=== PATIENT | female | born 1960 | race Caucasian/White ===

== ENCOUNTER 2017-04-29 11:27 | Emergency (ER) | payer SELFPAY ==
[2017-04-29] MEDS ORDERED: DIPH/PERTUSS(ACELL)/TETANUS VAC/PF 0.5 ML SYR (>=10YO) IM ONE ×2 (11:47→15:15)
[2017-04-29] MEDS ORDERED: OXYCODONE-ACETAMINOPHEN 5-325 MG TABLET PO ONE (11:47)
--- NOTE | 2017-04-29 11:49 | ER Document Report ---
ED Medical Screen (RME) - General Chief Complaint: Laceration Stated Complaint: LACERATION TO LEFT LEG Time Seen by Provider: 04/29/17 11:47 Mode of Arrival: Wheelchair Information source: Patient TRAVEL OUTSIDE OF THE [place] IN LAST 30 DAYS: No - HPI Patient complains to provider of: Left lower leg injury Onset: Just prior to arrival Notes: 04/29/17 11:48 Patient is a 56-year-old female who presents to the emergency room complaining of injury to her left lower leg, states she slipped and fell at home laceration to the leg and painful ambulation, denies pain or injury elsewhere - Related Data Allergies/Adverse Reactions: ampicillin [Ampicillin] Allergy (Verified 04/29/17 11:32) Past Medical History Pulmonary Medical History: Reports: Hx Asthma, Hx COPD, Hx Pneumonia Renal/ Medical History: Denies: Hx Peritoneal Dialysis Psychiatric Medical History: Reports: Hx Depression Past Surgical History: Reports: Hx Hysterectomy - Immunizations Hx Diphtheria, Pertussis, Tetanus Vaccination: No Physical Exam - Vital signs Vitals: Temp Pulse Resp BP Pulse Ox 97.4 F 81 20 108/79 97 04/29/17 11:37 04/29/17 11:37 04/29/17 11:37 04/29/17 11:37 04/29/17 11:37 Course - Vital Signs Vital signs: Temp Pulse Resp BP Pulse Ox 97.4 F 81 20 108/79 97 04/29/17 11:37 04/29/17 11:37 04/29/17 11:37 04/29/17 11:37 04/29/17 11:37
--- NOTE | 2017-04-29 12:39 | RADIOLOGY REPORT (SQ) ---
EXAM DESCRIPTION: TIBIA FIBULA LEFT COMPLETED DATE/TIME: 04/29/2017 12:21 pm REASON FOR STUDY: injury COMPARISON: None. NUMBER OF VIEWS: Two views. TECHNIQUE: Two radiographic images acquired of the left tibia and fibula to include the knee and ank le in at least one projection. LIMITATIONS: None. FINDINGS: MINERALIZATION: Normal. BONES: No acute fracture or dislocation. No worrisome bone lesions. SOFT TISSUES: There is appears to be a soft tissue injury in the pretibial region. OTHER: No other significant finding. IMPRESSION: Soft tissue injury with no acute osseous abnormality. TECHNICAL DOCUMENTATION: JOB ID: [id number] [employer]- All Rights Reserved
[2017-04-29] MEDS ORDERED: LIDOCAINE 1% INJ-PF (10 MG/ML) 30 ML SDV INJ ONE (15:19)
[2017-04-29] MEDS ORDERED: HYDROMORPHONE HCL INJ/PF 2 MG/ML AMPULE IM ONE (15:20)
--- NOTE | 2017-04-29 15:21 | ER Document Report ---
ED Wound - General Chief Complaint: Laceration Stated Complaint: LACERATION TO LEFT LEG Time Seen by Provider: 04/29/17 11:47 Mode of Arrival: Wheelchair Information source: Patient Notes: Patient is a 56-year-old female who presents to the ER today for laceration to her left lower leg after she fell and cut it on concrete. She is not up-to- date on her tetanus. She states bleeding is controlled. She denies any numbness or tingling. TRAVEL OUTSIDE OF THE [place] IN LAST 30 DAYS: No - Related Data Allergies/Adverse Reactions: ampicillin [Ampicillin] Allergy (Verified 04/29/17 11:32) Past Medical History - General Information source: Patient - Social History Smoking Status: Current Every Day Smoker Chew tobacco use (# tins/day): No Drug Abuse: None Family History: Reviewed & Not Pertinent Patient has suicidal ideation: No Patient has homicidal ideation: No Pulmonary Medical History: Reports: Hx Asthma, Hx COPD, Hx Pneumonia Renal/ Medical History: Denies: Hx Peritoneal Dialysis Psychiatric Medical History: Reports: Hx Depression Past Surgical History: Reports: Hx Hysterectomy - Immunizations Hx Diphtheria, Pertussis, Tetanus Vaccination: No Hx Pneumococcal Vaccination: 08/01/15 Review of Systems - Review of Systems Constitutional: No symptoms reported EENT: No symptoms reported Cardiovascular: No symptoms reported Respiratory: No symptoms reported Gastrointestinal: No symptoms reported Genitourinary: No symptoms reported Female Genitourinary: No symptoms reported Musculoskeletal: No symptoms reported, See HPI Skin: See HPI Hematologic/Lymphatic: No symptoms reported Neurological/Psychological: No symptoms reported Physical Exam - Vital signs Vitals: Temp Pulse Resp BP Pulse Ox 97.4 F 81 20 108/79 97 04/29/17 11:37 04/29/17 11:37 04/29/17 11:37 04/29/17 11:37 04/29/17 11:37 - Notes Notes: PHYSICAL EXAMINATION: GENERAL: Well-appearing and in no acute distress. HEAD: Atraumatic, normocephalic. EYES: Pupils equal round and reactive to light, extraocular movements intact, sclera anicteric, conjunctiva are normal. NECK: Normal range of motion, supple without lymphadenopathy LUNGS: CTAB and equal. No wheezes rales or rhonchi. HEART: Regular rate and rhythm without murmurs EXTREMITIES: Normal range of motion, no pitting edema. No cyanosis. NEUROLOGICAL: Cranial nerves grossly intact. Normal sensory/motor exams. PSYCH: Normal mood, normal affect. SKIN: Warm, Dry, normal turgor, large 8 cm laceration to the left anterior leg, gaping no bleeding, through subcutaneous fat but not into muscle Course - Re-evaluation Re-evalutation: 04/29/17 16:47 Procedure successfully using horizontal mattress sutures as well as simple interrupted sutures, patient tolerated procedure well - Vital Signs Vital signs: Temp Pulse Resp BP Pulse Ox 97.4 F 81 20 108/79 97 04/29/17 11:37 04/29/17 11:37 04/29/17 11:37 04/29/17 11:37 04/29/17 11:37 Procedures - Laceration/Wound Repair Left Anterior Leg Time completed: 16:40 Wound length (cm): 8 Wound's Depth, Shape: Superficial, Linear, Contused tissue Laceration pre-procedure: Sterile PPE donned, Betadine prep applied, Sterile drapes applied Anesthetic type: 1% Lidocaine Volume Anesthetic (mLs): 7 Wound explored: Clean Wound Repaired With: Sutures Suture Size/Type: 4:0, Nylon Number of Sutures: 15 Post-procedure NV exam normal: Yes Complications: No Notes: 04/29/17 16:49 horizontal mattress and simple interrupted Discharge - Discharge Clinical Impression: Leg laceration Qualifiers: Encounter type: initial encounter Laterality: left Qualified Code(s): S81.812A - Laceration without foreign body, left lower leg, initial encounter Condition: Stable Disposition: HOME, SELF-CARE Instructions: Laceration Care ([facility]), Prophylactic Antibiotic ([facility]), Tetanus Immunization Given ([facility]), Soap Cleansing ([facility]) Additional Instructions: Please be seen in 10 days to have sutures removed. Return immediately for any new or worsening symptoms. Follow up with primary care provider, call tomorrow to make followup appointment. Prescriptions: Cephalexin Monohydrate [Keflex 500 mg Capsule] 500 mg PO Q6H 5 Days
[2017-04-29] MEDS ORDERED: HYDROCODONE/ACETAMINOPHEN 5-325 MG 6 TAB/DSPK PO PRN (16:51)
[2017-04-29 17:15] VITALS: BP 114/62
== END 2017-04-29 17:11 | disposition home or self-care (01) ==
LOC: ER 11:27
PROC: 0HQLXZZ Repair Left Lower Leg Skin, External Approach (ICD-10-PCS; principal; 2017-04-29)
DX: S81.812A Laceration without foreign body, left lower leg, initial encounter (principal); W10.9XXA Fall (on) (from) unspecified stairs and steps, initial encounter; F17.200 Nicotine dependence, unspecified, uncomplicated; J44.9 Chronic obstructive pulmonary disease, unspecified; Z88.0 Allergy status to penicillin
CPT/HCPCS: 99283; 96372; 90471; 73590; 90715; 12004; J3490; J1170

== ENCOUNTER 2017-05-04 19:00 | Emergency (ER) | payer SELFPAY ==
[2017-05-04] MEDS ORDERED: SULFAMETHOXAZOLE/TRIMETHOPRIM 800-160 MG TABLET PO ONE (20:06)
[2017-05-04] MEDS ORDERED: HYDROCODONE/ACETAMINOPHEN 5-325 MG TABLET PO ONE (20:08)
--- NOTE | 2017-05-04 20:09 | ER Document Report ---
ED General - General Chief Complaint: Wound Infection Stated Complaint: LEFT LEG SWELLING AND PAIN Time Seen by Provider: 05/04/17 19:52 Mode of Arrival: Ambulatory Information source: Patient Notes: 36-year-old female presents to ED for cellulitis infection and swelling to the laceration that she was seen for on 04/29/2017. She has 15 sutures still intact. There is mild redness and swelling to the area. She was started on Keflex at the time of the sutures were placed. She states that the pain has increased since it started swelling. TRAVEL OUTSIDE OF THE [place] IN LAST 30 DAYS: No - HPI Onset: Other Onset/Duration: Gradual, Worse Quality of pain: Pressure, Sharp Severity: Moderate Pain Level: 4 Associated symptoms: Other - Redness swelling and pressure to the right lower leg patient states has had drainage from the area. Exacerbated by: Movement, Walking Relieved by: Denies Similar symptoms previously: Yes Recently seen / treated by doctor: Yes - Related Data Allergies/Adverse Reactions: ampicillin [Ampicillin] Allergy (Verified 05/04/17 19:46) Past Medical History - General Information source: Patient - Social History Smoking Status: Current Every Day Smoker Chew tobacco use (# tins/day): Yes Frequency of alcohol use: None Drug Abuse: None Lives with: Family Family History: Reviewed & Not Pertinent Patient has suicidal ideation: No Patient has homicidal ideation: No - Past Medical History Cardiac Medical History: Reports: None Pulmonary Medical History: Reports: Hx Asthma, Hx COPD, Hx Pneumonia EENT Medical History: Reports: None Neurological Medical History: Reports: None Endocrine Medical History: Reports: None Renal/ Medical History: Reports: None Malignancy Medical History: Reports: None GI Medical History: Reports: None Musculoskeltal Medical History: Reports Hx Musculoskeletal Trauma Skin Medical History: Reports Hx Cellulitis, Reports Hx MRSA Psychiatric Medical History: Reports: Hx Depression Traumatic Medical History: Reports: None Infectious Medical History: Reports: Hx MRSA Past Surgical History: Reports: Hx Hysterectomy - Immunizations Hx Diphtheria, Pertussis, Tetanus Vaccination: No Hx Pneumococcal Vaccination: 08/01/15 Review of Systems - Review of Systems Constitutional: No symptoms reported EENT: No symptoms reported Cardiovascular: No symptoms reported Respiratory: No symptoms reported Gastrointestinal: No symptoms reported Genitourinary: No symptoms reported Female Genitourinary: No symptoms reported Musculoskeletal: No symptoms reported Skin: Other - Redness swelling around the site of sutures to the left lower leg. Patient had fallen on concrete on 04/29/2017 and 15 sutures were placed to repair the wound. Hematologic/Lymphatic: No symptoms reported Neurological/Psychological: No symptoms reported -: Yes All other systems reviewed and negative Physical Exam - Vital signs Vitals: Temp Pulse Resp BP Pulse Ox 97.6 F 87 18 122/62 96 05/04/17 19:27 05/04/17 19:27 05/04/17 19:27 05/04/17 19:27 05/04/17 19:27 Interpretation: Normal - General General appearance: Appears well, Alert - HEENT Head: Normocephalic, Atraumatic Eyes: Normal Pupils: PERRL - Respiratory Respiratory status: No respiratory distress Chest status: Nontender Breath sounds: Normal Chest palpation: Normal - Cardiovascular Rhythm: Regular Heart sounds: Normal auscultation Murmur: No - Abdominal Inspection: Normal Distension: No distension Bowel sounds: Normal Tenderness: Nontender Organomegaly: No organomegaly - Back Back: Normal, Nontender - Extremities General upper extremity: Normal inspection, Nontender, Normal color, Normal ROM , Normal temperature General lower extremity: Normal ROM, Normal temperature, Normal weight bearing. No: Claribel's sign Calf: Other - Left lower leg red and swollen around the sutures that were placed on 04/29/2017. Very minimal drainage noted to the upper portion of the laceration. - Neurological Neuro grossly intact: Yes Cognition: Normal Orientation: AAOx4 [place] Coma Scale Eye Opening: Spontaneous [place] Coma Scale Verbal: Oriented [place] Coma Scale Motor: Obeys Commands [place] Coma Scale Total: 15 Speech: Normal Motor strength normal: LUE, RUE, LLE, RLE Sensory: Normal - Psychological Associated symptoms: Normal affect, Normal mood - Skin Skin Temperature: Warm Skin Moisture: Dry Skin Color: Normal Course - Re-evaluation Re-evalutation: 05/04/17 20:[address] Andre concerning the infected wound. He stated that the patient needs to be started on Septra and is a dose of Keflex as well as giving her a shot of Rocephin in the emergency room. Wound culture sent. Dr. Andre stated that the patient needs to return to the ED on Saturday to have the wound reassessed. Patient was given these instructions. She was sent home with a prescription for Keflex and Septra and Irrigon as well as crutches. Patient was given instructions for cleaning wound with soap and water. - Vital Signs Vital signs: Temp Pulse Resp BP Pulse Ox 97.6 F 87 18 122/62 96 05/04/17 19:27 05/04/17 19:27 05/04/17 19:52 05/04/17 19:27 05/04/17 19:27 Discharge - Discharge Clinical Impression: reassess leg laceration, Cellulitis of left lower leg Condition: Stable Disposition: HOME, SELF-CARE Additional Instructions: CELLULITIS: You have an infection of your skin and underlying soft tissues called cellulitis. This is due to bacteria, which can enter through any break in the skin, or even through an irritated hair follicle. Untreated, cellulitis will usually worsen. Antibiotics are required. Usually, warm packs or warm soaks, and elevation of the infected area are recommended. You should start getting better within 24 to 36 hours. Most infections respond quickly to the right medication. Follow-up care is important, however, to check for abscess (boil) formation, unsuspected foreign body, or resistant infection. If you develop fever, chills, or if the area of infection is becoming rapidly more swollen or painful, call the doctor at once. MRSA CELLULITIS: You have an infection of your skin and underlying soft tissues called cellulitis. This is due to bacteria, which can enter through any break in the skin, or even through an irritated hair follicle. Untreated, cellulitis will usually worsen and may form an abscess which requires draining. Although many bacterial organisms can cause cellulitis and abscess formations, the most likely bacteria is Methicillin-Resistant Staph Aureus, or MRSA for short. Antibiotics are required. Usually, warm packs or warm soaks, and elevation of the infected area are recommended. You should start getting better within 24 to 36 hours. Most infections respond quickly to the right medication. Follow-up care is important, however, to check for abscess (boil) formation, unsuspected foreign body, or resistant infection. If you develop fever, chills, or if the area of infection is becoming rapidly more swollen or painful, call the doctor at once. TRIMETHOPRIM-SULFA: You have been given a prescription for trimethoprim-sulfa (TMS, Septra, Bactrim). This is a combination antibiotic of the sulfa class, often used for urinary tract infections, middle ear infections, bronchitis, shigella intestinal infection, and Pneumocystis pneumonia. TMS is usually well-tolerated. Occasional side effects include nausea and decreased appetite. Septra is not recommended for infants less than two months of age. Do not take this medication if you have experienced severe side effects or allergy to sulfa medicine. You should stop this medicine at once and contact your physician if you develop any rash, joint pain, shortness of breath, bruising, or jaundice ( yellow color in the skin), or if you develop any other new or unusual symptoms. Cephalexin The antibiotic you've been prescribed is a member of the cephalosporin class. This type of antibiotic covers a wide variety of infections, including those of the skin, lungs, and urinary tract. It's useful for staph infections. This antibiotic is slightly similar to the penicillin family. In rare cases , a person who is allergic to penicillin will also be allergic to this medication. If you have had a severe allergic reaction to penicillin, and have not taken this antibiotic since that time, notify your doctor. Antibiotics which cover many germs ("broad spectrum" antibiotics) are more likely to cause diarrhea or "yeast" infections. Women prone to vaginal yeast problems may suffer an attack after taking this antibiotic. In infants, oral thrush (white spots "stuck" on the cheek) or yeast diaper rash may result. See your doctor if these problems occur. Call at once if you develop itching, hives , shortness of breath, or lightheadedness. ORAL NARCOTIC MEDICATION: You have been given a prescription for pain control. This medication is a narcotic. It's best taken with food, as nausea can result if taken on an empty stomach. Don't operate machinery or drive within six hours of taking this medication. Do not combine this medicine with alcohol, or with any medication which can cause sedation (such as cold tablets or sleeping pills) unless you get permission from the physician. Narcotics tend to cause constipation. If possible, drink plenty of fluids and eat a diet high in fiber and fruits. Please be aware that prescription narcotics also have the potential for abuse. People become addicted to these medications because of the general sense of wellbeing that they induce. This feeling along with a significant reduction in tension, anxiety, and aggression provides a stimulating seductive quality to these drugs. Once your pain is under control, we encourage you to discard your unused narcotics. FOLLOW-UP CARE: If you have been referred to a physician for follow-up care, call the physician s office for an appointment as you were instructed or within the next two days. If you experience worsening or a significant change in your symptoms, notify the physician immediately or return to the Emergency Department at any time for re-evaluation. Return to the ED Saturday for recheck of the laceration. Return sooner if increased swelling, increased redness, or increased drainage. Prescriptions: Hydrocodone/Acetaminophen [Irrigon 5-325 mg Tablet] 1 tab PO Q6HP PRN #20 tablet PRN Reason: Cephalexin Monohydrate [Keflex 500 mg Capsule] 500 mg PO QID #28 capsule Sulfamethoxazole/Trimethoprim [Septra-Ds 800-160 mg Tablet] 1 tab PO BID #20 tablet
[2017-05-04] MEDS ORDERED: LIDOCAINE 1% INJ-PF (10 MG/ML) 30 ML SDV INJ ONE (20:18)
[2017-05-04] MEDS ORDERED: CEFTRIAXONE INJ 1000 MG VIAL IM ONE (20:18)
[2017-05-04 21:16] VITALS: BP 98/58
== END 2017-05-04 21:16 | disposition home or self-care (01) ==
LOC: ER 19:00
DX: S81.812D Laceration without foreign body, left lower leg, subsequent encounter (principal); L03.116 Cellulitis of left lower limb; X58.XXXD Exposure to other specified factors, subsequent encounter; F17.220 Nicotine dependence, chewing tobacco, uncomplicated; J44.9 Chronic obstructive pulmonary disease, unspecified; Z86.14 Personal history of Methicillin resistant Staphylococcus aureus infection; Z90.710 Acquired absence of both cervix and uterus
CPT/HCPCS: 99283; 96372; 87070; 87205; 87075; J3490; J0696

== ENCOUNTER 2017-05-06 16:13 | Emergency (ER) | payer SELFPAY ==
[2017-05-06 16:22] VITALS: BP 105/63
--- NOTE | 2017-05-06 17:05 | ER Document Report ---
HPI - HPI Pain Level: 3 Notes: Is a 56-year-old female presents to the ED for wound recheck status post laceration suture repair 1 week ago. Patient came back for recheck 2 days ago and was found to have a worsening infection so they started her on Bactrim along with Keflex. The area was outlined with a skin marker. Patient states that since then she does continue to have some discomfort and some purulent discharge but does not believe that the infection has been worsening. She still eating and drink without any problems. She is continued take her medicines without any issues. Denies any wound dehiscence, fever, headaches, chest pain, syncope, cough, wheeze, shortness of breath, abdominal pain, nausea/ vomiting/diarrhea, worsening pain, red streaks. - ROS Notes: REVIEW OF SYSTEMS: CONSTITUTIONAL : Denies fever, chills, or sweats. Denies recent illness. CARDIOVASCULAR: Denies chest pain. Denies palpitations or racing or irregular heart beat. Denies ankle edema. RESPIRATORY: Denies cough, cold, or chest congestion. Denies shortness of breath, difficulty breathing, or wheezing. GASTROINTESTINAL: Denies abdominal pain or distention. Denies nausea, vomiting , or diarrhea. Denies blood in vomitus, stools, or per rectum. Denies black, tarry stools. Denies constipation. GENITOURINARY: Denies difficulty urinating, painful urination, burning, frequency, blood in urine, or discharge. FEMALE GENITOURINARY: Denies vaginal bleeding, heavy or abnormal periods, irregular periods. Denies vaginal discharge or odor. MUSCULOSKELETAL: see hpi SKIN: see HPI NEUROLOGICAL: Denies numbness/tingling ALL OTHER SYSTEMS REVIEWED AND NEGATIVE. Dictation was performed using [employer] voice recognition software - REPRODUCTIVE Reproductive: DENIES: : - DERM Skin Color: Normal Past Medical History - Social History Smoking Status: Unknown if Ever Smoked Family History: Reviewed & Not Pertinent Patient has suicidal ideation: No Patient has homicidal ideation: No Pulmonary Medical History: Reports: Hx Asthma, Hx COPD, Hx Pneumonia Renal/ Medical History: Denies: Hx Peritoneal Dialysis Musculoskeltal Medical History: Reports Hx Musculoskeletal Trauma Skin Medical History: Reports Hx Cellulitis, Reports Hx MRSA Psychiatric Medical History: Reports: Hx Depression Infectious Medical History: Reports: Hx MRSA Past Surgical History: Reports: Hx Hysterectomy - Immunizations Hx Diphtheria, Pertussis, Tetanus Vaccination: No Hx Pneumococcal Vaccination: 08/01/15 Vertical Provider Document - CONSTITUTIONAL Notes: PHYSICAL EXAMINATION: GENERAL: Well-appearing, well-nourished and in no acute distress. LUNGS: Breath sounds clear to auscultation bilaterally and equal. No wheezes rales or rhonchi. HEART: Regular rate and rhythm without murmurs, rubs, gallops. Musculoskeletal: Lt LE: FROM to passive/active. Strength 5+/5. Extremities: No cyanosis, clubbing, or edema b/l. Peripheral pulses 2+. Capillary refill less than 3 seconds. NEUROLOGICAL: Cranial nerves grossly intact. Normal speech, normal gait. Normal sensory, motor exams PSYCH: Normal mood, normal affect. SKIN: Minimal purulent discharge noted to the proximal wound. Erythema has decreased and is not near the old skin marking. + mild tenderness to palp. N/ V intact distal. I remarked the new erythemic area exactly to see if there is any notable change at next visit and I re-lined the old line for reference, marked "old." - INFECTION CONTROL TRAVEL OUTSIDE OF THE [place] IN LAST 30 DAYS: No - RESPIRATORY O2 Sat by Pulse Oximetry: 95 Course - Re-evaluation Re-evalutation: 05/06/17 20:39 Patient is an afebrile, well-hydrated, 56-year-old female presents for a wound recheck of her left lower leg. Patient was seen about a week ago for laceration repair requiring sutures. She was then followed up on Saturday and was found to have a cellulitis. Patient has been taking Bactrim and Keflex for her symptoms. There appears to be some improvement in her cellulitis. Skin was remarked along the new erythemic border with a reference re-marked for the old. Advised that she continue the antibiotics and continue wound care as directed. Patient is scheduled to recheck in 3 days for suture removal at that time the wound recheck also be performed. Return to the ED with any worsening/ concerning symptoms otherwise as reviewed in discharge. Patient is in agreement. - Vital Signs Vital signs: Temp Pulse Resp BP Pulse Ox 97.5 F 81 20 105/63 95 05/06/17 16:17 05/06/17 16:17 05/06/17 16:17 05/06/17 16:17 05/06/17 16:17 Discharge - Discharge Clinical Impression: Encounter for wound re-check Condition: Stable Disposition: HOME, SELF-CARE Additional Instructions: Keep the skin clean Wound care as previously directed Continue taking antibiotics as directed Recheck with your PCM in 2-3 days Pt already told to return in 3 days for suture removal, pt will also utilize that as a wound recheck Return to the ED with any worsening symptoms and/or development of fever, headache, chest pain, palpitations, syncope, shortness of breath, trouble breathing, abdominal pain, n/v/d, muscle weakness/paralysis, abscess, inc purulent discharge, red streaks, or other worsening symptoms that are concerning to you. Referrals: SHARLENE WALLER MD [ACTIVE STAFF] - Follow up as needed [facility] [Provider Group] - Follow up as needed
== END 2017-05-06 17:18 | disposition home or self-care (01) ==
LOC: ER 16:13
DX: S81.812D Laceration without foreign body, left lower leg, subsequent encounter (principal); X58.XXXD Exposure to other specified factors, subsequent encounter
CPT/HCPCS: 99281

== ENCOUNTER 2017-05-09 11:11 | Emergency (ER) | payer SELFPAY ==
[2017-05-09 11:18] VITALS: BP 114/77
--- NOTE | 2017-05-09 12:21 | ER Document Report ---
ED Suture/Wound Recheck - General Chief Complaint: Suture Removal Stated Complaint: WOUND RECHECK Time Seen by Provider: 05/09/17 12:04 TRAVEL OUTSIDE OF THE [place] IN LAST 30 DAYS: No - HPI Patient complains to provider of: suture removal Treated in ED (days ago): 10 Previous ED treatment: Laceration repair Antibiotics given previously: Prescription - keflex and bactrim Quality of pain: Achy Context: Injury Symptoms since procedure: Drainage, Redness, Swelling, Other - has been placed on bactrim since initial injury Exacerbated by: Movement, Walking Relieved by: Denies - Related Data Allergies/Adverse Reactions: ampicillin [Ampicillin] Allergy (Verified 05/09/17 11:13) Past Medical History - Social History Smoking Status: Current Every Day Smoker Family History: Reviewed & Not Pertinent Patient has suicidal ideation: No Patient has homicidal ideation: No Pulmonary Medical History: Reports: Hx Asthma, Hx COPD, Hx Pneumonia Renal/ Medical History: Denies: Hx Peritoneal Dialysis Musculoskeltal Medical History: Reports Hx Musculoskeletal Trauma Skin Medical History: Reports Hx Cellulitis, Reports Hx MRSA Psychiatric Medical History: Reports: Hx Depression Infectious Medical History: Reports: Hx MRSA Past Surgical History: Reports: Hx Hysterectomy - Immunizations Hx Diphtheria, Pertussis, Tetanus Vaccination: No Hx Pneumococcal Vaccination: 08/01/15 Review of Systems - Review of Systems Constitutional: No symptoms reported Musculoskeletal: Other - pain with walking Skin: See HPI -: Yes All other systems reviewed and negative Physical Exam - Vital signs Vitals: Temp Pulse Resp BP Pulse Ox 97.9 F 85 16 114/77 93 05/09/17 11:15 05/09/17 11:15 05/09/17 11:15 05/09/17 11:15 05/09/17 11:15 - General General appearance: Appears well, Alert In distress: None - Cardiovascular Pulses: Normal: Dorsalis pedis Normal capillary refill: Yes - Extremities General lower extremity: Other - laceration on the left ant tibia with surrounding cellulitis that has improved per patient, minimally tender, no drainage - Skin Skin Temperature: Warm Skin Moisture: Dry Skin Color: Normal Skin Turgor: Elastic Course - Re-evaluation Re-evalutation: 05/09/17 21:30 Patient is a 56-year-old female presents for suture removal. No evidence of dehiscence or worsening signs of cellulitis. Patient to complete her antibiotics and follow-up with primary care. Patient agrees with plan. - Vital Signs Vital signs: Temp Pulse Resp BP Pulse Ox 97.9 F 85 16 114/77 93 05/09/17 11:15 05/09/17 11:15 05/09/17 11:15 05/09/17 11:15 05/09/17 11:15 Discharge - Discharge Clinical Impression: Visit for suture removal Condition: Good Disposition: HOME, SELF-CARE Instructions: Suture Removal Additional Instructions: Please return with any signs of worsening infection such as redness, swelling, drainage, increased pain, red streaks. Please be sure to take all of your antibiotics.
== END 2017-05-09 12:28 | disposition home or self-care (01) ==
LOC: ER 11:11
DX: Z48.02 Encounter for removal of sutures (principal); F17.200 Nicotine dependence, unspecified, uncomplicated

== ENCOUNTER 2020-07-14 23:36 | Emergency (ER) | payer SELFPAY ==
[2020-07-15] MEDS ORDERED: HYDROCODONE/ACETAMINOPHEN 5-325 MG TABLET PO ONE ×2 (01:31→07:45)
[2020-07-15] MEDS ORDERED: VALACYCLOVIR HCL 500 MG TABLET PO ONE ×3 (01:31→08:33)
--- NOTE | 2020-07-15 01:31 | ER Document Report ---
ED Medical Screen (RME) - General Chief Complaint: Skin Problem Stated Complaint: POSSIBLE SHINGLES Notes: 59-year-old female with past medical history of COPD and anxiety presenting today with shortness of breath on Saturday and then left-sided chest and flank pain starting Saturday. She scratched her back later and then noticed that she had a rash on her back. Also reports chills. Has not received the shingles vaccine. Smokes a pack every 2 days. Her cough is getting worse. Uses an albuterol inhaler for her COPD. Has not taken anything for pain. She does not like to take pain medication. As she has had worsening shortness of breath and a cough with chills I will order a chest x-ray for the patient. Physical exam: A large raised erythematous vesicular rash along the left mid. Lungs are clear to auscultation bilaterally. Heart is regular rate rhythm no murmurs rubs or gallops. I have greeted and performed a rapid initial assessment of this patient. A comprehesive ED assessment and evaluation of this patient, analysis of test results and completion of the medical decision-making process will be conducted by additional ED providers. TRAVEL OUTSIDE OF THE [place] IN LAST 30 DAYS: No - Related Data Allergies/Adverse Reactions: ampicillin [Ampicillin] Allergy (Verified 07/15/20 01:13) Home Medications: ALBUTEROL Past Medical History - Social History Frequency of alcohol use: None Drug Abuse: None Pulmonary Medical History: Reports: Hx Asthma, Hx COPD, Hx Pneumonia Renal/ Medical History: Denies: Hx Peritoneal Dialysis Musculoskeltal Medical History: Reports Hx Musculoskeletal Trauma Skin Medical History: Reports Hx Cellulitis, Reports Hx MRSA Psychiatric Medical History: Reports: Hx Depression Infectious Medical History: Reports: Hx MRSA Past Surgical History: Reports: Hx Hysterectomy - Immunizations Hx Diphtheria, Pertussis, Tetanus Vaccination: No Physical Exam - Vital signs Vitals: Temp Pulse Resp BP Pulse Ox 98.7 F 122 H 22 H 133/93 H 99 07/14/20 23:54 07/14/20 23:54 07/14/20 23:54 07/14/20 23:54 07/14/20 23:54 Course - Vital Signs Vital signs: Temp Pulse Resp BP Pulse Ox 98.7 F 122 H 22 H 133/93 H 99 07/14/20 23:54 07/14/20 23:54 07/14/20 23:54 07/14/20 23:54 07/14/20 23:54
--- NOTE | 2020-07-15 02:21 | RADIOLOGY REPORT (SQ) ---
CLINICAL INDICATION: cough, sob. TECHNIQUE: A single portable AP view was obtained of the chest at 0212 hours. COMPARISON: August 01, 2015. FINDINGS: The cardiomediastinal silhouette is normal. The lungs are grossly clear. No evidence of effusion or pneumothorax. Chronic parenchymal lung change. IMPRESSION: No evidence of active intrathoracic disease.
[2020-07-15 06:27] VITALS: BP 110/84
[2020-07-15] MEDS ORDERED: LIDOCAINE 5% (700 MG) TRANSDERMAL ADH..PATCH TP ONE (08:33)
[2020-07-15] MEDS ORDERED: PREDNISONE 20 MG TABLET PO ONE (08:33)
--- NOTE | 2020-07-15 08:38 | ER Document Report ---
HPI - HPI Patient complains to provider of: Rib pain Time Seen by Provider: 07/15/20 08:23 Onset/Duration: Persistent Quality of pain: Burning Pain Level: 5 Context: Patient presents with a 5-day history of pain to the left anterior posterior rib area. 4 days ago patient noticed a rash. Patient is concerned that she may have shingles. Patient denies any cough or cold symptoms. Patient denies any fever. Associated Symptoms: denies: Nonproductive cough, Fever Exacerbated by: Denies Relieved by: Denies Similar symptoms previously: No Recently seen / treated by doctor: No - ROS ROS below otherwise negative: Yes Systems Reviewed and Negative: Yes All other systems reviewed and negative - CONSTITUTIONAL Constitutional: DENIES: Fever, Chills - EENT EENT: DENIES: Sore Throat, Ear Pain, Eye problems - NEURO Neurology: DENIES: Dizzinesss / Vertigo - CARDIOVASCULAR Cardiovascular: REPORTS: Chest pain - Rib tenderness - RESPIRATORY Respiratory: DENIES: Trouble Breathing, Coughing - GASTROINTESTINAL Gastrointestinal: DENIES: Abdominal Pain, Nausea, Patient vomiting - URINARY Urinary: DENIES: Dysuria - MUSCULOSKELETAL Musculoskeletal: REPORTS: Back Pain. DENIES: Extremity pain - DERM Skin Problems: Rash Past Medical History - General Information source: Patient - Social History Smoking Status: Current Every Day Smoker Frequency of alcohol use: None Drug Abuse: None Occupation: None Family History: Reviewed & Not Pertinent Pulmonary Medical History: Reports: Hx Asthma, Hx COPD, Hx Pneumonia Renal/ Medical History: Denies: Hx Peritoneal Dialysis Musculoskeletal Medical History: Reports Hx Musculoskeletal Trauma Skin Medical History: Reports Hx Cellulitis, Reports Hx MRSA Psychiatric Medical History: Reports: Hx Depression, Hx Post Traumatic Stress Disorder Infectious Medical History: Reports: Hx MRSA Past Surgical History: Reports: Hx Hysterectomy - Immunizations Hx Diphtheria, Pertussis, Tetanus Vaccination: No Hx Pneumococcal Vaccination: 08/01/15 Vertical Provider Document - CONSTITUTIONAL Agree With Documented VS: No Exam Limitations: No Limitations General Appearance: WD/WN, No Apparent Distress - INFECTION CONTROL TRAVEL OUTSIDE OF THE [place] IN LAST 30 DAYS: No - HEENT HEENT: Atraumatic, Normocephalic - NECK Neck: Normal Inspection, Supple. negative: Lymphadenopathy-Left, Lymphadenopathy-Right - RESPIRATORY Respiratory: No Respiratory Distress, Chest Non-Tender, Wheezing - faint scattered - CARDIOVASCULAR Cardiovascular: Regular Rate, Regular Rhythm, No Murmur. negative: Tachycardia - BACK Back: Normal Inspection - MUSCULOSKELETAL/EXTREMETIES Musculoskeletal/Extremeties: MAEW - NEURO Level of Consciousness: Awake, Alert, Appropriate Motor/Sensory: No Motor Deficit - DERM Integumentary: Warm, Dry, Rash - Erythematous papular rash to anterior and posterior aspect of the left trunk Course - Re-evaluation Re-evalutation: 07/15/20 08:34 Patient presents with painful rash to anterior posterior aspect of trunk consistent with shingles. Patient reports a history of COPD and reports cough difficult her usual cough with COPD. Patient without any dyspnea. Patient nontoxic in appearance at this time. - Vital Signs Vital signs: Temp Pulse Resp BP Pulse Ox 98.1 F 106 H 18 110/84 99 07/15/20 01:35 07/15/20 06:25 07/15/20 01:35 07/15/20 06:25 07/15/20 06:25 - Diagnostic Test Radiology reviewed: Reports reviewed Discharge - Discharge Clinical Impression: Shingles Qualifiers: Herpes zoster complications: without complications Qualified Code(s): B02.9 - Zoster without complications COPD (chronic obstructive pulmonary disease) Qualifiers: COPD type: unspecified COPD Qualified Code(s): J44.9 - Chronic obstructive pulmonary disease, unspecified Condition: Stable Disposition: HOME, SELF-CARE Instructions: Chronic Obstructive Lung Disease ([facility]), Shingles ([facility]), Steroid Medication Additional Instructions: Return immediately for any new or worsening symptoms Followup with your primary care provider, call tomorrow to make a followup appointment Prescriptions: Prednisone [Deltasone 20 mg Tablet] 2 tab PO DAILY 4 Days #8 tablet Lidocaine [Lidoderm 5% (700 mg) Transdermal Patch] 1 patch TP DAILY PRN #10 adh..patch PRN Reason: Oxycodone HCl/Acetaminophen [Percocet 5-325 mg Tablet] 1 tab PO ASDIR PRN #15 tablet PRN Reason: Valacyclovir HCl [Valtrex] 1,000 mg PO TID #42 tablet Referrals: [facility] [Provider Group] - Follow up as needed
== END 2020-07-15 08:54 | disposition home or self-care (01) ==
LOC: ER 23:36
DX: B02.9 Zoster without complications (principal); R07.81 Pleurodynia; J44.9 Chronic obstructive pulmonary disease, unspecified; F17.200 Nicotine dependence, unspecified, uncomplicated; Z86.14 Personal history of Methicillin resistant Staphylococcus aureus infection
CPT/HCPCS: 99284; 71045; J7512